=== PATIENT | male | born 1985 | race Hispanic/Latino ===

== ENCOUNTER 2022-01-19 01:34 | Emergency (ER) | payer OTHER | END 2022-01-19 02:40 | disposition home or self-care (01) | LOC: CSHERS 01:34 | DX: S02.2XXA Fracture of nasal bones, initial encounter for closed fracture (principal); W21.05XA Struck by basketball, initial encounter | CPT/HCPCS: 99283 ==

== ENCOUNTER 2024-04-10 15:02 | Emergency (ER) | payer OTHER ==
[2024-04-10] MEDS ORDERED: Ibuprofen 200 MG TAB ONE (15:45)
[2024-04-10] MEDS ORDERED: Acetaminophen 500 MG TAB ONE (15:45)
== END 2024-04-10 16:24 | disposition home or self-care (01) ==
LOC: CSHERS 15:02
DX: S69.92XA Unspecified injury of left wrist, hand and finger(s), initial encounter (principal); I10 Essential (primary) hypertension; F17.210 Nicotine dependence, cigarettes, uncomplicated; W23.0XXA Caught, crushed, jammed, or pinched between moving objects, initial encounter